=== PATIENT | male | born 1980 | race Two or more races ===

== ENCOUNTER 2024-05-21 06:42 | Emergency (ER) | payer OTHER ==
[~2024-05-21] VITALS: Ht 175.3 cm; Wt 100.0 kg
[2024-05-21 06:45] VITALS: BP 138/82; PULSE 79; RESP 18; TEMP 98
[2024-05-21] MEDS: LIDOCAINE 5% TRANSDERMAL PATCH TD ONE (07:42)
[2024-05-21] MEDS: ACETAMINOPHEN 500 MG TABLET PO ONE (07:42)
[2024-05-21] MEDS: KETOROLAC TROMETHAMINE 30 MG/ML VIAL IM ONE (07:42)
[2024-05-21] MEDS ORDERED: LIDO700A15 TP (07:51)
[2024-05-21] MEDS ORDERED: IBUP-1492 PO (07:51)
[2024-05-21] MEDS ORDERED: ACET-3385 PO (07:51)
[2024-05-21] MEDS: CLOTRIMAZOLE 1% 15 GM CREAM TP ONE (08:04)
== END 2024-05-21 11:06 | disposition home or self-care (01) ==
LOC: EMS 06:44
DX: M54.12 Radiculopathy, cervical region (principal); B35.9 Dermatophytosis, unspecified; F17.210 Nicotine dependence, cigarettes, uncomplicated; F15.10 Other stimulant abuse, uncomplicated
CPT/HCPCS: 99284; 71045; 96372; J1885

== ENCOUNTER 2024-05-30 01:34 | Emergency (ER) | payer OTHER ==
[~2024-05-30] VITALS: Ht 152.4 cm; Wt 100.0 kg
[~2024-05-30 01:34] MED LIST: ACET-3385 PO; IBUP-1492 PO; LIDO700A15 TP
[2024-05-30 02:23] VITALS: BP 137/86; PULSE 88; RESP 16; TEMP 98.5
[2024-05-30] MEDS: ACETAMINOPHEN 500 MG TABLET PO ONE (03:47)
[2024-05-30] MEDS: CLOTRIMAZOLE 1% 15 GM CREAM TP ONE (03:48)
[2024-05-30 05:15] LABS: APPEARANCE,URINE CLEAR (CLEAR); BILIRUBIN,URINE NEGATIVE (NEGATIVE); COLOR,URINE LIGHT YELLOW (YELLOW); GLUCOSE, URINE (UA) NEGATIVE (NEGATIVE); KETONES,URINE NEGATIVE (NEGATIVE); LEUKOCYTE ESTERASE ,URINE NEGATIVE (NEGATIVE); NITRATE,URINE NEGATIVE (NEGATIVE); OCCULT BLOOD,URINE NEGATIVE (NEGATIVE); PROTEIN,URINE TRACE mg/dL (NEGATIVE); SPECIFIC GRAVITIY, URINE 1.033 (1.003-1.030); UROBILINOGEN,URINE <=1.0 mg/dL (<=1.0)
== END 2024-05-30 05:42 | disposition home or self-care (01) ==
LOC: EMS 01:34
DX: R19.7 Diarrhea, unspecified (principal); F20.9 Schizophrenia, unspecified; F17.210 Nicotine dependence, cigarettes, uncomplicated; F15.90 Other stimulant use, unspecified, uncomplicated
CPT/HCPCS: 81003; 99283